=== PATIENT | male | born 1985 | race Caucasian/White ===

== ENCOUNTER 2022-06-07 06:34 | Emergency (ER) | payer SELFPAY ==
[2022-06-07 06:51] VITALS: BP 129/91; PULSE 74; RESP 16; TEMP 36.5; O2SAT 97
--- NOTE | 2022-06-07 06:57 | ED.GENADULT ---
HPI - General Adult General Time Seen by Provider: 06:58 Date Seen: 06/07/22 Chief complaint: Abdominal Pain Stated complaint: stomach pain,vomiting,diarrhea Time Seen by Provider: 06/07/22 06:36 Source: patient and RN notes reviewed Mode of arrival: ambulatory Limitations: no limitations History of Present Illness HPI narrative: Patient is a 37-year-old male coming in with abdominal pain and bloating. He and a friend both were sick after eating at a restaurant Sunday. He vomited Sunday night, had diarrhea. Yesterday he was able to eat a little bit. Still has some nausea, is feeling bloated. He thinks sending 90 at a bit of a fever but none since. He feels like he cannot defecate now, maybe almost feels constipated. He has tried Pepto-Bismol, Prilosec, took amoxicillin about 1 pill a day for 3 days with this. He does drink alcohol but states not much. There has been no blood in vomit or stool. His friend is already feeling better but he is not. Does report a history of reflux but no prior abdominal surgeries. Related Data Home Medications Medication Instructions Recorded Confirmed amoxicillin .ROUTE 06/07/22 bismuth subsalicylate 262 mg/15 mL 524 mg PO Q30M PRN 06/07/22 06/07/22 oral suspension (Anti-Diarrheal) omeprazole magnesium 20 mg 20 mg PO DAILY 06/07/22 06/07/22 tablet,delayed release (Prilosec OTC) Allergies Allergy/AdvReac Type Severity Reaction Status Date / Time No Known Drug Allergies Allergy Verified 06/07/22 06:54 Review of Systems Status of ROS: Reports: 10 or more systems reviewed and unremarkable except as noted in History and below [facility] Medical History (Updated 06/07/22 @ 08:02 by Charity Bear MD) GERD (gastroesophageal reflux disease) Exam Const: Vital Signs, click to edit/add: Vital Signs - 24 hr 06/07/22 06:51 Temperature 97.7 F Pulse Rate [Left P ulse Oximeter] 74 Respiratory Rate 16 Blood Pressure [Ri ght Upper Arm] 129/91 H Pulse Oximetry 97 Oxygen Delivery Me thod Room Air Documenting provider has reviewed patient's vital signs: yes Common normals: no apparent distress, average body habitus, oriented x3, no limitations, healthy appearing, alert and well nourished General appearance: cooperative, comfortable and well kempt HENMT: Common normals: normocephalic, head/scalp atraumatic, hearing grossly normal bilaterally and external ears normal Head and scalp: normocephalic and atraumatic External ear: external ears normal Eye: Common normals: PERRL, EOMs intact bilaterally, conjunctivae normal and no scleral icterus Conjunctiva: conjunctiva(e) normal Pupil: PERRL Neck & C-Spine: Common normals: full ROM, no lymphadenopathy, supple, no meningeal signs, no JVD and thyroid normal Thyroid: thyroid normal Resp: Common normals: normal respiratory effort, no retractions, no use of accessory muscles and clear to auscultation bilaterally Auscultation: clear to auscultation bilaterally Cardio: Common normals: no JVD, regular rate, regular rhythm, S1 normal heart sound, S2 normal heart sound, no gallops, no clicks and no murmurs Rate: regular rate Rhythm: regular rhythm Heart sounds: S1 normal and S2 normal GI: Common normals: Normal to inspection, nondistended, normoactive bowel sounds present, soft to palpation, no hepatosplenomegaly and no masses Palpation: soft and no hepatosplenomegaly Other: Bowel sounds are present, sound normal overall. He has mild diffuse tenderness throughout his abdomen but no rebound or guarding. Extremity: Common normals: normal to inspection, full ROM, normal capillary refill, no joint enlargement, no clubbing, cyanosis or edema, no calf tenderness and no pedal edema Neuro: Common normals: oriented x3 and gait normal Sensorium/orientation: alert Meningeal signs: no meningeal signs Speech: speech normal Psych: Appearance: well kempt Skin: Common normals: no rashes or lesions noted General skin exam: no rashes or lesions noted Course Course Hospital Course: We will establish an IV, give the patient 1 L normal saline, 4 mg IV Zofran and 15 mg IV Toradol. We will obtain flat and upright abdominal imaging, basic labs. This certainly could be ongoing symptoms from food-borne illness, complicating ileus. It is unlikely that he would be constipated at this point. We will start with basic imaging of the abdominal film, moved to advanced imaging if indicated. Reevaluation(s) Reevaluation #1: Reviewed with patient his normal laboratory evaluation and abdominal x-ray. He is feeling better with the medications provided. Reviewed with him that I am hopeful that it will just take a little bit more time for his intestines to return back to normal. There is nothing worrisome at this time that requires further intervention. He is happy to hear this. Time: 08:27 Vital Signs Vital signs: Initial Vital Signs Temperature 97.7 F 06/07/22 06:51 Temperature Source Temporal Artery Scan 06/07/22 06:51 Pulse Rate 74 06/07/22 06:51 Pulse Rhythm 06/07/22 06:51 Respiratory Rate 16 06/07/22 06:51 Blood Pressure 129/91 H 06/07/22 06:51 Blood Pressure Mean 103 06/07/22 06:51 Blood Pressure Position Semi-Fowlers 06/07/22 06:51 Pulse Oximetry 97 06/07/22 06:51 Oxygen Delivery Method 06/07/22 06:51 Vital Signs Temperature 97.7 F 06/07/22 06:51 Pulse Rate 74 06/07/22 06:51 Respiratory Rate 16 06/07/22 06:51 Blood Pressure 129/91 H 06/07/22 06:51 Pulse Oximetry 97 06/07/22 06:51 Oxygen Delivery Method 06/07/22 06:51 Temperature 97.7 F 06/07/22 06:51 Pulse Rate 74 06/07/22 06:51 Respiratory Rate 16 06/07/22 06:51 Blood Pressure 129/91 H 06/07/22 06:51 Pulse Oximetry 97 06/07/22 06:51 Oxygen Delivery Method 06/07/22 06:51 Medical Decision Making Lab Data Lab results reviewed: Yes I reviewed the patient's lab results Labs: Lab Results 06/07/22 06/07/22 06/07/22 Range/Units 07:25 07:25 07:25 WBC 7.04 (4.50-11.00) K/uL RBC 5.53 (4.30-5.90) m/uL Hgb 15.8 (13.5-17.5) gm/dL Hct 45.7 (37.0-53.0) % MCV 83 (80-100) fL MCH 29 (26-34) pg MCHC 35 (32-36) gm/dL RDW Coeff of Rodrigo 13.0 (11.5-15.5) % Plt Count 248 (140-440) K/uL Neut % (Auto) 61.8 (42.0-72.0) % Lymph % (Auto) 25.7 (20-44) % [place] % (Auto) 7.5 (0.0-11.0) % Eos % (Auto) 4.3 (0.0-7.0) % Baso % (Auto) 0.4 (0.0-3.0) % Neut # (Auto) 4.35 (1.7-7.0) K/uL Lymph # (Auto) 1.81 (0.90-2.90) K/uL [place] # (Auto) 0.50 (0.00-0.90) K/UL Eos # (Auto) 0.30 (0.00-0.50) K/uL Baso # (Auto) 0.03 (0.00-0.30) K/uL Abs Immat Gran (auto) 0.02 (0.00-0.30) K/uL Sodium 142 (135-149) mmol/L Potassium 4.0 (3.6-5.1) mmol/L Chloride 109 (96-114) mmol/L Carbon Dioxide 23 (20-32) mmol/L BUN 13 (5-24) mg/dL Creatinine 0.7 (0.5-1.5) mg/dL Estimated Creat Clear 124.46 Estimated GFR 121 ml/min Glucose 106 (60-115) mg/dL Lactate 0.9 (0.5-1.9) mmol/L Calcium 8.8 (8.4-10.6) mg/dL Total Bilirubin 0.5 (0.1-1.5) mg/dL AST 35 (12-35) U/L ALT 57 H (4-50) U/L Alkaline Phosphatase 113 (40-150) U/L C-Reactive Protein 1.3 H (0.5-1.0) mg/dL Total Protein 7.3 (6.0-8.3) g/dL Albumin 4.4 (3.3-5.0) g/dL Lipase 67 (23-300) U/L Imaging Data Abdominal x-ray: Attestation: I have reviewed the pertinent imaging results. My impression: No obstructive pattern on my preliminary read of this flat and upright. Await Radiology over-read. Radiologist's impression: Patient: ERICK MARADIAGA Facility:?[facility] Patient ID:?[id number] Site Patient ID:?[id number]. Site :?1985 Study:?XRay Abdomen Flat/upright-06/07/2022 7:17:39 AM Ordering Physician:?Marianela Nash Final Report: Indication: Pain. Bloating. Nausea. Vomiting. Diarrhea Technique: Upright and supine views of the abdomen were acquired Comparison: None Findings: Normal osseous structures. No pathologic calcifications. Nonspecific bowel gas pattern but no characteristic findings of ileus or obstruction. No free air. Impression: Nonspecific bowel gas pattern but no characteristic findings of ileus or obstruction. No free air. Normal osseous structures. No pathologic calcifications. Dictated by Feliz Donahue MD @ 06/07/2022 7:40:23 AM (Electronic Signature) Critical Care Time Critical Care Time Critical Care Time: No Discharge Plan Discharge Clinical Impression: Abdominal pain Patient Disposition: Home, Self-Care Condition: Stable Instructions: Abdominal Pain (ED) Additional Instructions: Drink plenty of fluids, stay with bland diet until you are feeling better. I would expect that you are going to start feeling better within the next couple days. Sometimes the bowels can be slow to return to normal function after you have had a diarrheal illness or a food-borne illness. There is no evidence of anything concerning in the workup today. If you develop increasing abdominal pain, have any fever with abdominal pain or return of vomiting, do need to return to the ER. Prescriptions: No Action omeprazole magnesium [Prilosec OTC] 20 mg tablet,delayed release (DR/EC) 20 mg PO DAILY bismuth subsalicylate [Anti-Diarrheal] 262 mg/15 mL suspension 524 mg PO Q30M PRN Rx Instructions: do not exceed 8 doses in a 24 hour period amoxicillin .ROUTE Label Comments: unknown dose Stand Alone Forms: MyHealth Info Instructions
--- NOTE | 2022-06-07 07:03 | CRLHL7_ITS ---
For Patients: As a result of the Century Cures Act, medical imaging exams and procedure reports are released immediately into your electronic medical record. You may view this report before your referring provider. If you have questions, please contact your health care provider. Indication: Pain. Bloating. Nausea. Vomiting. Diarrhea Technique: Upright and supine views of the abdomen were acquired Comparison: None Findings: Normal osseous structures. No pathologic calcifications. Nonspecific bowel gas pattern but no characteristic findings of ileus or obstruction. No free air. Impression: Nonspecific bowel gas pattern but no characteristic findings of ileus or obstruction. No free air. Normal osseous structures. No pathologic calcifications. Dictated by Feliz Donahue MD @ 06/07/2022 7:40:23 AM (Electronically Signed)
--- OUTSIDE RECORDS SUMMARY | 2022-06-07 07:13 | XMS_ITS | Encounter Summary ---
:1985 Author Organization [facility] Address [address] [place] [address] Care Team Providers Name Role Phone Unavailable Primary Care Provider Unavailable Reason for Visit Reason Onset Date Comments Testing For Upper Respiratory Virus Symptoms 03/01/2021 Encounter Details Date Type Department Care Team Description 03/01/2021 External Outreach Department of [facility] Blanca Abdul Contact With And Medicine, [place] [facility] Ahuja (Suspected) Exposure Clinic, in [address] To COVID-19 (Primary [place], [place] Dx) [address] [place] [address] [place], [place] [phone] (Work) [phone] Social History Tobacco Use Types Packs/Day Years Used Date Smoking Tobacco: Never Assessed Sex Assigned at Date Recorded Not on file documented as of this encounter Progress Notes Winsome Kulkarni RDustin. - 03/01/2021 9:18 AM CDT Encounter created for symptomatic infectious disease screening with possible COVID, Influenza, RSV, and/or Group A Strep testing. documented in this encounter Plan of Treatment Not on filedocumented as of this encounter Procedures Procedure Name Priority Date/Time Associated Diagnosis Comme nts SARS CORONAVIRUS-2 Routine 03/01/2021 9:19 AM Contact With And Results for this RNA, V CDT (Suspected) Exposure procedu re are in To COVID-19 the results section. documented in this encounter Results SARS Coronavirus-2 RNA, V Symptomatic (03/01/2021 9:19 AM CDT) [facility] Method Time Signature SARS-CoV-2 Swab, 03/01/2021 ECLR Specimen Nasopharynx 7:55 PM CDT Source SARS CoV-2 Undetected Undetected 03/01/2021 ECLR RNA, TMA 7:55 PM CDT Comment: SARS-CoV-2 RNA absent. This result does not rule out COVID-19 in the patient, as the sensitivity of the test depends o n the timing of the specimen collection and the quality of the specim en. Result should be correlated with patient's history and clinical presentat ion. ----ADDITIONAL INFORMATION---- This molecular amplification test was pe rformed using the Aptima SARS-CoV-2 assay ([employer] on the [employer] tem under emergency use authorization (EUA) by the U.S. Food and Drug Administ ration. Fact sheets for this EUA assay can be fo und at the following links: For Healthcare Providers: https://www.fd a.gov/media/068500/download For Patients: https://www.fda.gov/media/ 441343/download Specimen Anatomical Collection Method Collection Time Receive d Time (Source) Location / / Volume Laterality Varies 03/01/2021 9:19 AM 3:24 (Nasopharynx) CDT PM CDT Salvatore Abdul P.A.-C. LAB MICROBIOLOGY - GENERAL O [place] Performing Organization Address City/State/ZIP Code Phon e Number [facility]- [address] [place] [address] [phone] [facility] [place] [address] [address] documented in this encounter Visit Diagnoses Diagnosis Contact With And (Suspected) Exposure To COVID-19 - Primary documented in this encounter Additional Health Concerns Infection Onset Date Last Indicated Resolved Time COVID19 Pending 03/01/2021 03/01/2021 03/01/2021 7:56 PM CDT documented as of this encounter
--- OUTSIDE RECORDS SUMMARY | 2022-06-07 07:13 | XMS_ITS | Encounter Summary ---
:1985 Author Organization [facility] Address [address] [place] [address] Care Team Providers Name Role Phone Unavailable Primary Care Provider Unavailable Encounter Details Date Type Department Care Team Description 07/22/2020 Clinical Communication Department of [facility] P[facility], [facility] in [place], [place] [address] [place] [phone] Social History Tobacco Use Types Packs/Day Years Used Date Smoking Tobacco: Never Assessed Sex Assigned at Date Recorded Not on file documented as of this encounter Miscellaneous Notes Telephone Encounter - Aye Bueno - 07/22/2020 4:21 PM CST The patient called requesting results of their COVID-19 test. The results were communicated to the patient as negative. Aye Bueno Desk Stave Inspector PROFESSIONAL documented in this encounter Plan of Treatment Not on filedocumented as of this encounter Visit Diagnoses Not on filedocumented in this encounter Additional Health Concerns Infection Onset Date Last Indicated Resolved Time COVID19 Pending 07/21/2020 07/21/2020 07/22/2020 11:21 AM TAX PROFESSIONAL documented as of this encounter
--- OUTSIDE RECORDS SUMMARY | 2022-06-07 07:13 | XMS_ITS | Encounter Summary ---
:1985 Author Organization [facility] Address [address] [place] [address] Care Team Providers Name Role Phone Unavailable Primary Care Provider Unavailable Reason for Visit Reason Onset Date Comments Testing For Upper Respiratory Virus Symptoms 12/09/2020 Encounter Details Date Type Department Care Team Description 12/09/2020 External Outreach Department of [facility] Fredo Abdul ntact With And Medicine, Salvatore Ahuja, (Suspected) Exp osure Professional and P.A.-C. To COVID-19 ([facility] in [address] [place] [address] lvd Dx) [place], [place] [address] [address] [place], [place] [phone] (Work) [phone] Social History Tobacco Use Types Packs/Day Years Used Date Smoking Tobacco: Never Assessed Sex Assigned at Date Recorded Not on file documented as of this encounter Progress Notes Winsome Kulkarni RDustin. - 12/09/2020 8:15 AM CDT Encounter created for symptomatic infectious disease screening with possible COVID, Influenza, RSV, and/or Group A Strep testing. documented in this encounter Plan of Treatment Not on filedocumented as of this encounter Procedures Procedure Name Priority Date/Time Associated Diagnosis Comme nts SARS CORONAVIRUS-2 Routine 12/09/2020 8:16 AM Contact With And Results for this RNA, V CDT (Suspected) Exposure procedu re are in To COVID-19 the results section. documented in this encounter Results SARS Coronavirus-2 RNA, V Symptomatic (12/09/2020 8:16 AM CDT) [facility] Method Time Signature SARS-CoV-2 Swab, 12/09/2020 ECLR Specimen Nasopharynx 8:22 PM CDT Source SARS CoV-2 Undetected Undetected 12/09/2020 ECLR RNA, TMA 8:22 PM CDT Comment: SARS-CoV-2 RNA absent. This result does not rule out COVID-19 in the patient, as the sensitivity of the test depends o n the timing of the specimen collection and the quality of the specim en. Result should be correlated with patient's history and clinical presentat ion. ----ADDITIONAL INFORMATION---- This molecular amplification test was pe rformed using the Aptima SARS-CoV-2 assay ([employer] on the [employer] tem under emergency use authorization (EUA) by the U.S. Food and Drug Administ ration. Fact sheets for this EUA assay can be fo und at the following links: For Healthcare Providers: https://www.fd a.gov/media/964318/download For Patients: https://www.fda.gov/media/ 925387/download Specimen Anatomical Collection Method Collection Time Receive d Time (Source) Location / / Volume Laterality Varies 12/09/2020 8:16 AM 3:05 (Nasopharynx) CDT PM CDT Salvatore Abdul P.A.-C. LAB MICROBIOLOGY - GENERAL O [place] Performing Organization Address City/State/ZIP Code Phon e Number [facility]- [address] [place] [address] [phone] [facility] [place] [place] [address] System [address] documented in this encounter Visit Diagnoses Diagnosis Contact With And (Suspected) Exposure To COVID-19 - Primary documented in this encounter Additional Health Concerns Infection Onset Date Last Indicated Resolved Time COVID19 Pending 12/09/2020 12/09/2020 12/09/2020 8:23 PM CDT documented as of this encounter
--- OUTSIDE RECORDS SUMMARY | 2022-06-07 07:13 | XMS_ITS | Encounter Summary ---
:1985 Author Organization [facility] Address [address] [place] [address] Care Team Providers Name Role Phone Unavailable Primary Care Provider Unavailable Reason for Visit Reason Onset Date Comments Testing For Upper Respiratory Virus Symptoms 08/02/2020 Encounter Details Date Type Department Care Team Description 08/02/2020 Admin Visit Department of Family Infecti on Upper Medicine, Professional and R espiratory (Primary Dx) [facility] in [place], [place] [address] [place] [phone] Social History Tobacco Use Types Packs/Day Years Used Date Smoking Tobacco: Never Assessed Sex Assigned at Date Recorded Not on file documented as of this encounter Progress Notes Tiny Wasserman R.N. - 08/02/2020 2:15 PM CST Encounter created for symptomatic infectious disease screening with possible COVID, Influenza, and RSV testing. ANTY CLERK documented in this encounter Plan of Treatment Not on filedocumented as of this encounter Procedures Procedure Name Priority Date/Time Associated Diagnosis Comme nts SARS CORONAVIRUS-2 Routine 08/02/2020 2:16 PM Infection Upper Results for this RNA, V WARRANTY CLERK Respiratory procedure are i n the results section. documented in this encounter Results SARS Coronavirus-2 RNA, V Symptomatic (08/02/2020 2:16 PM WARRANTY CLERK) [facility] Method Time Signature SARS-CoV-2 Swab, 08/03/2020 ECLR Specimen Nasopharynx 3:14 PM WARRANTY CLERK Source SARS CoV-2 Undetected Undetected 08/03/2020 ECLR RNA, TMA 3:14 PM WARRANTY CLERK Comment: SARS-CoV-2 RNA absent. This result does not rule out COVID-19 in the patient, as the sensitivity of the test depends o n the timing of the specimen collection and the quality of the specim en. Result should be correlated with patient's history and clinical presentat ion. ----ADDITIONAL INFORMATION---- This molecular amplification test was pe rformed using the Aptima SARS-CoV-2 assay ([employer] on the [employer] tem under emergency use authorization (EUA) by the U.S. Food and Drug Administ ration. Fact sheets for this EUA assay can be fo und at the following links: For Healthcare Providers: https://www.[employer] a.gov/media/441331/download For Patients: https://www.fda.gov/media/ 631503/download Specimen Anatomical Collection Method Collection Time Receive d Time (Source) Location / / Volume Laterality Varies 08/02/2020 2:16 PM 0 (Nasopharynx) WARRANTY CLERK 10:00 PM WARRANTY CLERK Salvatore Abdul P.A.-C. LAB MICROBIOLOGY - GENERAL O RDERABLES Performing Organization Address City/State/ZIP Code Phon e Number [facility]- [address] [place] [phone] [facility] [place] [address] System [address] documented in this encounter Visit Diagnoses Diagnosis Infection Upper Respiratory - Primary documented in this encounter Additional Health Concerns Infection Onset Date Last Indicated Resolved Time COVID19 Pending 08/02/2020 08/02/2020 08/03/2020 3:15 PM WARRANTY CLERK documented as of this encounter
--- OUTSIDE RECORDS SUMMARY | 2022-06-07 07:13 | XMS_ITS | Encounter Summary ---
:1985 Author Organization [facility] Address [address] [place] [address] Care Team Providers Name Role Phone Unavailable Primary Care Provider Unavailable Encounter Details Date Type Department Care Team Description 07/27/2020 Admin Visit Department of Family Medicine, [facility] and [facility] [place] in [place], [place] [address] [phone] Social History Tobacco Use Types Packs/Day Years Used Date Smoking Tobacco: Never Assessed Sex Assigned at Date Recorded Not on file documented as of this encounter Plan of Treatment Not on filedocumented as of this encounter Visit Diagnoses Not on filedocumented in this encounter Additional Health Concerns Infection Onset Date Last Indicated Resolved Time COVID19 Pending 07/27/2020 07/27/2020 07/28/2020 11:32 AM STAINED GLASS GLAZIER documented as of this encounter
--- OUTSIDE RECORDS SUMMARY | 2022-06-07 07:13 | XMS_ITS | Encounter Summary ---
:1985 Author Organization [facility] Address [address] [place] [address] Care Team Providers Name Role Phone Unavailable Primary Care Provider Unavailable Encounter Details Date Type Department Care Team Description 12/13/2020 Clinical Communication Department of [facility] Salvatore Abdul [facility] [place] [facility] [address] [address] [place], [place] [phone] (Work) [phone] Social History Tobacco Use Types Packs/Day Years Used Date Smoking Tobacco: Never Assessed Sex Assigned at Date Recorded Not on file documented as of this encounter Miscellaneous Notes Telephone Encounter - Brigid Garcia - 12/13/2020 9:45 AM CDT The patient called requesting results of their COVID-19\ test. The results were communicated to the patient as negative. documented in this encounter Plan of Treatment Not on filedocumented as of this encounter Visit Diagnoses Not on filedocumented in this encounter
--- OUTSIDE RECORDS SUMMARY | 2022-06-07 07:13 | XMS_ITS | Encounter Summary ---
:1985 Author Organization [facility] Address [address] [place] [address] Care Team Providers Name Role Phone Unavailable Primary Care Provider Unavailable Reason for Visit Reason Onset Date Comments Testing For Upper Respiratory Virus Symptoms 08/09/2020 Encounter Details Date Type Department Care Team Description 08/09/2020 Admin Visit Department of Family Infecti on Upper Medicine, Professional and R espiratory (Primary Dx) [facility] in [place], [place] [address] [place] [phone] Social History Tobacco Use Types Packs/Day Years Used Date Smoking Tobacco: Never Assessed Sex Assigned at Date Recorded Not on file documented as of this encounter Progress Notes Alma Miller, L.P.N. - 08/09/2020 2:20 PM CST Encounter created for symptomatic infectious disease screening with possible COVID, Influenza, and RSV testing. E/MATERIALS EXCHANGE SPECIALIST documented in this encounter Plan of Treatment Not on filedocumented as of this encounter Procedures Procedure Name Priority Date/Time Associated Diagnosis Comme nts SARS CORONAVIRUS-2 Routine 08/09/2020 2:22 PM Infection Upper Results for this RNA, V WASTE/MATERIALS EXCHANGE SPECIALIST Respiratory procedure are i n the results section. documented in this encounter Results SARS Coronavirus-2 RNA, V Symptomatic (08/09/2020 2:22 PM WASTE/MATERIALS EXCHANGE SPECIALIST) [facility] Method Time Signature SARS-CoV-2 Swab, 08/10/2020 ECLR Specimen Nasopharynx 4:04 PM WASTE/MATERIALS EXCHANGE SPECIALIST Source SARS CoV-2 Undetected Undetected 08/10/2020 ECLR RNA, TMA 4:04 PM WASTE/MATERIALS EXCHANGE SPECIALIST Comment: SARS-CoV-2 RNA absent. This result does not rule out COVID-19 in the patient, as the sensitivity of the test depends o n the timing of the specimen collection and the quality of the specim en. Result should be correlated with patient's history and clinical presentat ion. ----ADDITIONAL INFORMATION---- This molecular amplification test was pe rformed using the Aptima SARS-CoV-2 assay ([employer] on the Localos tem under emergency use authorization (EUA) by the U.S. Food and Drug Administ ration. Fact sheets for this EUA assay can be fo und at the following links: For Healthcare Providers: https://www.[employer] a.gov/media/138530/download For Patients: https://www.fda.gov/media/ 403946/download Specimen Anatomical Collection Method Collection Time Receive d Time (Source) Location / / Volume Laterality Varies 08/09/2020 2:22 PM 9:45 (Nasopharynx) WASTE/MATERIALS EXCHANGE SPECIALIST PM WASTE/MATERIALS EXCHANGE SPECIALIST Salvatore Abdul P.A.-C. LAB MICROBIOLOGY - GENERAL O RDERABLES Performing Organization Address City/State/ZIP Code Phon e Number [facility]- [address] [place] [phone] [facility] [place] [address] System in [address] documented in this encounter Visit Diagnoses Diagnosis Infection Upper Respiratory - Primary documented in this encounter Additional Health Concerns Infection Onset Date Last Indicated Resolved Time COVID19 Pending 08/09/2020 08/09/2020 08/10/2020 4:04 PM WASTE/MATERIALS EXCHANGE SPECIALIST documented as of this encounter
--- OUTSIDE RECORDS SUMMARY | 2022-06-07 07:13 | XMS_ITS | Encounter Summary ---
:1985 Author Organization [facility] Address [address] [place] [address] Care Team Providers Name Role Phone Unavailable Primary Care Provider Unavailable Reason for Visit Reason Comments Results Encounter Details Date Type Department Care Team Description 02/03/2020 Clinical Communication Department of [facility] Salvatore Abdul [facility] [place] [facility], in [address] [facility] [address] [place], [place] [phone] (Work) [phone] Social History Tobacco Use Types Packs/Day Years Used Date Smoking Tobacco: Never Assessed Sex Assigned at Date Recorded Not on file documented as of this encounter Miscellaneous Notes Telephone Encounter - Heidi Boyd - 02/03/2020 11:33 AM CDT Gave Negative COVID-19 result to patient via phone. documented in this encounter Plan of Treatment Not on filedocumented as of this encounter Visit Diagnoses Not on filedocumented in this encounter
--- OUTSIDE RECORDS SUMMARY | 2022-06-07 07:13 | XMS_ITS | Encounter Summary ---
:1985 Author Organization [facility] Address [address] [place] [address] Care Team Providers Name Role Phone Unavailable Primary Care Provider Unavailable Reason for Visit Reason Comments COVID Nurse Line Encounter Details Date Type Department Care Team Description 02/02/2020 Clinical Communication Central Appointment Line, Wendy AVILA Nurse Line Office in [facility] [address] [place], [place] [id number] Social History Tobacco Use Types Packs/Day Years Used Date Smoking Tobacco: Never Assessed Sex Assigned at Date Recorded Not on file documented as of this encounter Miscellaneous Notes Telephone Encounter - Paulina Evans R.N. - 02/02/2020 9:37 AM CDT COVID-19 Nurse Line Screening ASSESSMENT *Screening done via phone vessel ordinary seaman line. COVID 19 Screening Have you had close contact with a person who has a LABORATORY CONFIRMED case of COVID-19?: No - Continue screening. Is this close contact a household contact?: No- Continue screening In the last 48 hours have you had any of the following symptoms?: New cough, New shortness of breath, New diarrhea, New headache, New myalgias (muscle aches) Do you have any urgent symptoms?: None- Patient meets criteria for testing. PLAN Endpoint recommendation: Screening positive, testing indicated, advised to be swabbed for COVID-19, sent to [facility] building located at [address] Testing hours are daily 10 am to 6 pm. When you arrive stay in your car and someone will direct you. Care Points provided: RECOMMENDATIONS TESTING CRITERIA IS MET: Stay home except to get medical care. Avoid public areas and public transportation. Separate yourself from other people and stay in a specific sick room if possible. Wear a cloth face covering, over your nose and mouth if you must be a round other people even at home). Cover your nose and mouth when coughing or sneezing. Contact employer/occupational health department to notify them that they are being tested. Seek emergent care if any of the following occur: 1) Trouble breathing, 2) Bluish lips or face, 3) Persistent pain or pressure in the chest, 4) Newly confused or unable to stay alert and awake. Notify appropriate care provider if any new or worsening symptoms. If your test is negative and new symptoms develop please contact your care provider to determine if re-testing is necessary. Education: patient/caregiver Patient/caregiver able to teach back Patient agreeable to plan of care: Yes The following references were used: [facility] novel coronavirus (COVID- 19) resources Nursing judgement documented in this encounter Plan of Treatment Not on filedocumented as of this encounter Visit Diagnoses Not on filedocumented in this encounter Additional Health Concerns Infection Onset Date Last Indicated Resolved Time COVID19 Pending 02/02/2020 02/02/2020 02/02/2020 11:38 PM CDT documented as of this encounter
--- OUTSIDE RECORDS SUMMARY | 2022-06-07 07:13 | XMS_ITS | Encounter Summary ---
:1985 Author Organization [facility] Address [address] [place] [address] Care Team Providers Name Role Phone Unavailable Primary Care Provider Unavailable Encounter Details Date Type Department Care Team Description 08/09/2020 Clinical Communication Department of [facility] Unassigned , Pcp Medicine, Professional and [facility] in [place], [place] [address] [phone] Social History Tobacco Use Types Packs/Day Years Used Date Smoking Tobacco: Never Assessed Sex Assigned at Date Recorded Not on file documented as of this encounter Plan of Treatment Not on filedocumented as of this encounter Visit Diagnoses Not on filedocumented in this encounter
--- OUTSIDE RECORDS SUMMARY | 2022-06-07 07:13 | XMS_ITS | Encounter Summary ---
:1985 Author Organization [facility] Address [address] [place] [address] Care Team Providers Name Role Phone Unavailable Primary Care Provider Unavailable Encounter Details Date Type Department Care Team Description 07/21/2020 Clinical Communication [facility] [place] [facility] P[facility] [place], [address] [address] [place], [place] [phone] (Work) [phone] Social History Tobacco Use Types Packs/Day Years Used Date Smoking Tobacco: Never Assessed Sex Assigned at Date Recorded Not on file documented as of this encounter Plan of Treatment Not on filedocumented as of this encounter Visit Diagnoses Not on filedocumented in this encounter
--- OUTSIDE RECORDS SUMMARY | 2022-06-07 07:13 | XMS_ITS | Encounter Summary ---
:1985 Author Organization [facility] Address [address] [place] [address] Care Team Providers Name Role Phone Unavailable Primary Care Provider Unavailable Encounter Details Date Type Department Care Team Description 07/27/2020 Clinical Communication Department of [facility] Unassigned , Pcp Medicine, Professional and Community Center in [place], [place] [address] [phone] Social History Tobacco Use Types Packs/Day Years Used Date Smoking Tobacco: Never Assessed Sex Assigned at Date Recorded Not on file documented as of this encounter Plan of Treatment Not on filedocumented as of this encounter Visit Diagnoses Not on filedocumented in this encounter
--- OUTSIDE RECORDS SUMMARY | 2022-06-07 07:13 | XMS_ITS | Encounter Summary ---
:1985 Author Organization [facility] Address [address] [place] [address] Care Team Providers Name Role Phone Unavailable Primary Care Provider Unavailable Encounter Details Date Type Department Care Team Description 11/30/2020 Orders Only [facility] PCP TH Sa cem Mendoza M.D. [address] [place] [phone] (Wo rk) Social History Tobacco Use Types Packs/Day Years Used Date Smoking Tobacco: Never Assessed Sex Assigned at Date Recorded Not on file documented as of this encounter Plan of Treatment Not on filedocumented as of this encounter Visit Diagnoses Not on filedocumented in this encounter
--- OUTSIDE RECORDS SUMMARY | 2022-06-07 07:13 | XMS_ITS | Encounter Summary ---
:1985 Author Organization [facility] Address [address] [place] [address] Care Team Providers Name Role Phone Unavailable Primary Care Provider Unavailable Encounter Details Date Type Department Care Team Description 12/09/2020 Clinical Communication Department [facility] Pcp Medicine, Professional and Community Center in [place], [place] [address] [place] [phone] Social History Tobacco Use Types Packs/Day Years Used Date Smoking Tobacco: Never Assessed Sex Assigned at Date Recorded Not on file documented as of this encounter Miscellaneous Notes Telephone Encounter - Tonyjohn Pool Meeks - 12/09/2020 8:12 AM CDT What is the purpose of the call?: Requesting Testing Only Request Testing In the past 14 days are any of the following symptoms new to you and not related to an existing health condition?: No symptoms noted In the past 14 days have you had close contact* with a person who has a LABORATORY CONFIRMED case ofCOVID-19?: Yes exposure noted. [place] patient, instruct to quarantine, testing indicated (End Screening) Testing Recommendation Endpoint Is testing recommended? : Recommended to test Plan: Endpoint recommendation: Testing indicated, advised to be swabbed for COVID-19 Only , sent to [facility] building located at [address] You must schedule an appointment for testing at this location. Please call [phone] during the hours of 7 am to 6 pm (M-F) or 9 am to 4:00pm (Sat and Sun) for an appointment time. Testing hours are 8 am to 12 noon every day. When you arrive at the testing site: Remain in your vehicle and check-in by calling the number listed on the signage at the testing site or provided to you at the time you schedule your testing appointment. and Please avoid using public transportation per CDC recommendation. If you do not have personal transportation please self-quarantine until a personal transportation option is available. *Reminder if sending patient for testing in [facility] or [facility], route encounter to the correct testing pool. documented in this encounter Plan of Treatment Not on filedocumented as of this encounter Visit Diagnoses Not on filedocumented in this encounter
--- OUTSIDE RECORDS SUMMARY | 2022-06-07 07:13 | XMS_ITS | Encounter Summary ---
:1985 Author Organization [facility] Address [address] [place] [address] Care Team Providers Name Role Phone Unavailable Primary Care Provider Unavailable Encounter Details Date Type Department Care Team Description 07/21/2020 Admin Visit Department of Family Medicine, [facility] [place] in [place], [place] [address] [phone] Social History Tobacco Use Types Packs/Day Years Used Date Smoking Tobacco: Never Assessed Sex Assigned at Date Recorded Not on file documented as of this encounter Plan of Treatment Not on filedocumented as of this encounter Visit Diagnoses Not on filedocumented in this encounter Additional Health Concerns Infection Onset Date Last Indicated Resolved Time COVID19 Pending 07/21/2020 07/21/2020 07/22/2020 11:21 AM PLAN COORDINATOR documented as of this encounter
--- OUTSIDE RECORDS SUMMARY | 2022-06-07 07:13 | XMS_ITS | Encounter Summary ---
:1985 Author Organization [facility] Address [address] [place] [address] Care Team Providers Name Role Phone Unavailable Primary Care Provider Unavailable Encounter Details Date Type Department Care Team Description 12/09/2020 Admin Visit Department of Family Medicine, [facility] [place] in [place], [place] [address] [phone] Social History Tobacco Use Types Packs/Day [...]
[2022-06-07] MEDS: ONDANSETRON 2 MG/ML inj 4 MG IVP (07:26)
[2022-06-07] MEDS: KETOROLAC 15 MG/ML inj IVP (07:27)
[2022-06-07] MEDS: 0.9 % SODIUM CHLORIDE 1000 ml 1,000 ML IV (07:27)
[2022-06-07 07:33] LABS: Lactate* 0.9 mmol/L (0.5-1.9)
[2022-06-07 07:35] LABS: Basophils Absolute Auto 0.03 K/uL (0.00-0.30); Basophils Percent Auto 0.4 % (0.0-3.0); Eosinophils Percent Auto 4.3 % (0.0-7.0); Hematocrit 45.7 % (37.0-53.0); Hemoglobin* 15.8 gm/dL (13.5-17.5); Immature Granulocytes Abs Auto 0.02 K/uL (0.00-0.30); Lymphocytes Absolute Auto 1.81 K/uL (0.90-2.90); Lymphocytes Percent Auto 25.7 % (20-44); Mean Corpuscular HGB Conc 35 gm/dL (32-36); Mean Corpuscular Hemoglobin 29 pg (26-34); Mean Corpuscular Volume 83 fL (80-100); Monocytes Percent Auto 7.5 % (0.0-11.0); Neutrophils Absolute Auto 4.35 K/uL (1.7-7.0); Neutrophils Percent Auto 61.8 % (42.0-72.0); Platelet Count* 248 K/uL (140-440); Red Blood Count 5.53 m/uL (4.30-5.90); White Blood Count* 7.04 K/uL (4.50-11.00)
[2022-06-07 07:37] LABS: Slide Review Reflex No
[2022-06-07 07:51] LABS: Albumin* 4.4 g/dL (3.3-5.0); Chloride* 109 mmol/L (96-114)
[2022-06-07 07:52] LABS: Sodium* 142 mmol/L (135-149)
[2022-06-07 07:54] LABS: Bilirubin Total* 0.5 mg/dL (0.1-1.5); Creatinine* 0.7 mg/dL (0.5-1.5); Est. Creatinine Clearance* 124.46; Estimated Glomerular Filt Rate 121 ml/min
[2022-06-07 07:55] LABS: Alanine Aminotransferase* 57 U/L (4-50); Alkaline Phosphatase* 113 U/L (40-150); Aspartate Amino Transferase* 35 U/L (12-35); Blood Urea Nitrogen* 13 mg/dL (5-24); Calcium* 8.8 mg/dL (8.4-10.6); Carbon Dioxide* 23 mmol/L (20-32); Glucose* 106 mg/dL (60-115); Lipase* 67 U/L (23-300); Total Protein* 7.3 g/dL (6.0-8.3)
[2022-06-07 07:58] LABS: C Reactive Protein* 1.3 mg/dL (0.5-1.0)
== END 2022-06-07 08:34 | disposition home or self-care (01) ==
PROVIDERS: Emergency Provider Family Medicine
DX: R10.9 Unspecified abdominal pain (principal); R11.10 Vomiting, unspecified; R19.7 Diarrhea, unspecified; K21.9 Gastro-esophageal reflux disease without esophagitis; Z79.899 Other long term (current) drug therapy
CPT/HCPCS: 36415; 74019; 80053; 83605; 83690; 85025; 86140; 96361; 96374; 96375; 99284; J1885; J2405; J7030

== ENCOUNTER 2025-07-14 13:54 | Emergency (ER) | payer OTHER, SELFPAY ==
[2025-07-14 14:38] VITALS: BP 138/85; PULSE 87; RESP 18; TEMP 36.9; O2SAT 97
--- NOTE | 2025-07-14 14:54 | CRLHL7_ITS ---
For Patients: As a result of the Century Cures Act, medical imaging exams and procedure reports are released immediately into your electronic medical record. You may view this report before your referring provider. If you have questions, please contact your health care provider. Indication: Fume exposure Technique: Chest 2 views Comparison: Chest x-ray 10/05/2016 Findings/Impression: Cardiovascular and mediastinum: Heart size and vasculature are normal in caliber and appearance. Mediastinum is within normal limits. Lungs and pleural spaces: Lungs are clear. No sign of infiltrate or mass. No sign of pleural effusion. No pneumothorax. Bones and soft tissues: No significant findings. Dictated by Myles Cuevas MD @ 07/14/2025 3:17:14 PM (Electronically Signed)
--- NOTE | 2025-07-14 14:54 | ED.GENADULT ---
HPI - General Adult General Time Seen by Provider: 14:54 Date Seen: 07/14/25 Chief complaint: Headache/Migraine Stated complaint: Smoke inhalation Time Seen by Provider: 07/14/25 14:53 Source: patient, RN notes reviewed and improvement rn Mode of arrival: ambulatory Limitations: no limitations History of Present Illness HPI narrative: This 40-year-old speaking patient seen with the improvement rn and is coming in with concern of fume exposure happening at work yesterday. He was driving a diesel truck, started smelling significant fumes. It irritated his throat, caused his eyes to water. He states he had some cough. He actually went home and had some nausea and vomiting. He had a little upper epigastric discomfort with that. All of these symptoms are gone today except a headache. He had a headache yesterday and still has a headache. No neurologic changes. No fevers or chills. He went to a clinic as advised by his work, they were unable to do blood work. He notes he is coughing a little still. He does not think he has been ill with anything, has had no concerns of any illness prior to this. Symptoms started after the exposure to the fumes. Patient is a smoker. His past medical history is significant for GERD and anxiety. No chronic medications. Patient was seen with nursing staff in triage to try to facilitate care due to the volume in the acuity in the ER. They are currently no ED beds. Related Data Home Medications ?Medication ?Instructions ?Recorded ?Confirmed acetaminophen [Tylenol] PO 10/23/23 10/23/23 Allergies Allergy/AdvReac Type Severity Reaction Status Date / Time No Known Drug Allergies Allergy Verified 07/14/25 14:46 Review of Systems Status of ROS: Reports: 6 or more systems reviewed and unremarkable except as noted in History and below [facility] Medical History GERD (gastroesophageal reflux disease) ?K21.9 - Gastro-esophageal reflux disease without esophagitis (ICD-10) Social History service: No Exam Const: Vital Signs, click to edit/add: Vital Signs - 24 hr 07/14/25 14:38 Temperature 98.5 F Pulse Rate [Right Pulse Oximeter] 87 Respiratory Rate 18 Blood Pressure [Ri ght Upper Arm] 138/85 Pulse Oximetry 97 Oxygen Delivery Me thod Room Air This 40-year-old male is alert, interactive, no apparent distress. He is sitting up, speech sounds normal, no hoarseness, no stridor. Sclera clear, symmetrical facial function. Neck supple, no adenopathy. No jugular venous distension. Lungs are clear, good air entry, no wheezing or crackles, no tachypnea, no accessory muscle use. CV regular rate and rhythm, no murmur, normal S1-S2. Abdomen is soft, nontender, nondistended, no organomegaly, notably patient is in the chair and this is the best that I can do with current resources. Patient did ambulate independently into the ED of his own accord. Documenting provider has reviewed patient's vital signs: yes Course Course ED Course: Patient had an exposure today, he would very likely be out of the window any acute management. We will check a carboxyhemoglobin, CBC and comprehensive metabolic panel. Will do a two view chest x-ray just to ensure lung parenchyma looks normal. His vital signs are reassuring. Will check these labs and chest x-ray, review with him and see how he is doing. He clinically looks quite well and is very stable. Reevaluation(s) Time of Reevaluation #1: 16:32 Reevaluation #1: Have updated patient, answered questions. He is stable to discharge to home at this time. We did review that his carbon monoxide is within normal limits for somebody who smokes cigarettes, is not elevated. We discussed watching for other symptoms that might develop, it is possible the headache might be indicative of early viral syndrome. Vital Signs Vital signs: Initial Vital Signs Temperature 98.5 F 07/14/25 14:38 Temperature Source Temporal Artery Scan 07/14/25 14:38 Pulse Rate 87 07/14/25 14:38 Pulse Rhythm Regular 07/14/25 14:38 Pulse Strength 3+ Normal 07/14/25 14:38 Respiratory Rate 18 07/14/25 14:38 Blood Pressure 138/85 07/14/25 14:38 Blood Pressure Mean 102 07/14/25 14:38 Blood Pressure Position Sitting 07/14/25 14:38 Pulse Oximetry 97 07/14/25 14:38 Oxygen Delivery Method Room Air 07/14/25 14:38 Vital Signs Temperature 98.5 F 07/14/25 14:38 Pulse Rate 87 07/14/25 14:38 Respiratory Rate 18 07/14/25 14:38 Blood Pressure 138/85 07/14/25 14:38 Pulse Oximetry 97 07/14/25 14:38 Oxygen Delivery Method Room Air 07/14/25 14:38 Temperature 98.5 F 07/14/25 14:38 Pulse Rate 87 07/14/25 14:38 Respiratory Rate 18 07/14/25 14:38 Blood Pressure 138/85 07/14/25 14:38 Pulse Oximetry 97 07/14/25 14:38 Oxygen Delivery Method Room Air 07/14/25 14:38 Medical Decision Making Lab Data Lab results reviewed: Yes I reviewed the patient's lab results Labs: Lab Results 07/14/25 Range/Units 15:44 WBC 8.64 (4.50-11.00) K/uL RBC 5.65 (4.30-5.90) m/uL Hgb 16.2 (13.5-17.5) gm/dL Hct 47.8 (37.0-53.0) % MCV 85 (80-100) fL MCH 29 (26-34) pg MCHC 34 (32-36) gm/dL RDW Coeff of Rodrigo 12.8 (11.5-15.5) % Plt Count 330 (140-440) K/uL Neut % (Auto) 59.1 (42.0-72.0) % Lymph % (Auto) 29.9 (20-44) % Harney % (Auto) 6.6 (0.0-11.0) % Eos % (Auto) 3.7 (0.0-7.0) % Baso % (Auto) 0.5 (0.0-3.0) % Neut # (Auto) 5.11 (1.7-7.0) K/uL Lymph # (Auto) 2.58 (0.90-2.90) K/uL Harney # (Auto) 0.60 (0.00-0.90) K/UL Eos # (Auto) 0.32 (0.00-0.50) K/uL Baso # (Auto) 0.04 (0.00-0.30) K/uL Abs Immat Gran (auto) 0.02 (0.00-0.30) K/uL Imm/Tot Granulo (auto) 0.2 % VBG pH 7.390 (7.32-7.43) VBG pCO2 43 (40-50) mmHG VBG pO2 35.7 (25-47) mmHG VBG HCO3 26 (21-28) mmol/L Carboxyhemoglobin 6.4 H (0.0-5.0) % Sodium 139 (135-149) mmol/L Potassium 4.5 (3.6-5.1) mmol/L Chloride 101 (96-114) mmol/L Carbon Dioxide 24 (20-32) mmol/L Anion Gap 14 (7-15) mEq/L BUN 11 (5-24) mg/dL Creatinine 0.8 (0.5-1.5) mg/dL Estimated GFR 114 ml/min Glucose 95 (60-115) mg/dL Calcium 9.3 (8.4-10.6) mg/dL Total Bilirubin 0.4 (0.1-1.5) mg/dL AST 34 (12-35) U/L ALT 61 H (4-50) U/L Alkaline Phosphatase 103 (40-150) U/L Total Protein 7.9 (6.0-8.3) g/dL Albumin 4.8 (3.3-5.0) g/dL Imaging Data Chest x-ray: Attestation: I have reviewed the pertinent imaging results. My impression: Did visualize patient's chest x-ray, do not see any acute pathology on my preliminary review. Radiologist's impression: Patient: ERICK MARADIAGA Facility:?[facility] [place] [facility] Patient ID:?[id number] Site Patient ID:?[id number]. Site :?1985 Study:?XRay-Chest -07/14/2025 3:13:49 PM Ordering Physician:?Marianela Nash Final Report: Indication: Fume exposure Technique: Chest 2 views Comparison: Chest x-ray 10/05/2016 Findings/Impression: Cardiovascular and mediastinum: Heart size and vasculature are normal in caliber and appearance. Mediastinum is within normal limits. Lungs and pleural spaces: Lungs are clear. No sign of infiltrate or mass. No sign of pleural effusion. No pneumothorax. Bones and soft tissues: No significant findings. Dictated by Myles Cuevas MD @ 07/14/2025 3:17:14 PM (Electronic Signature) Discharge Plan Discharge Clinical Impression: Accidental exposure to carbon monoxide Patient Disposition: Home, Self-Care Condition: Stable Additional Instructions: There is no evidence of any significant elevation of carbon monoxide. Your level is in normal limits of somebody who smokes cigarettes. Your white count and chemistries are all normal, chest x-ray is not showing any evidence of lung abnormality. You can try some Tylenol or ibuprofen per bottle directions for your headache. If your headache is not controlled with this, if your headache is worsening, you develop other concerns or new issues, can seek re-evaluation. Recommend going home to rest tonight, do drink plenty of fluids as this can help decrease headache. Activity Level: No Restrictions Prescriptions: No Action acetaminophen [Tylenol] PO Follow Up/Referrals: Provider,Not a Local [Primary Care Provider, Family Practice] Stand Alone Forms: [facility] Info Instructions Procedures ABG Interpretation ABG Results: 07/14/25 15:44 VBG pH 7.390 VBG pCO2 43 VBG pO2 35.7 VBG HCO3 26
[2025-07-14 15:52] LABS: Carboxyhemoglobin* 6.4 % (0.0-5.0); HCO3 VBG 26 mmol/L (21-28); PCO2 VBG 43 mmHG (40-50); PO2 VBG 35.7 mmHG (25-47); pH VBG 7.390 (7.32-7.43)
[2025-07-14 15:53] LABS: Hematocrit* 47.8 % (37.0-53.0); Hemoglobin* 16.2 gm/dL (13.5-17.5); Immature Granulocytes Abs Auto 0.02 K/uL (0.00-0.30); Immature Granulocytes Pct Auto 0.2 %; Lymphocytes Absolute Auto 2.58 K/uL (0.90-2.90); Mean Corpuscular HGB Conc 34 gm/dL (32-36); Mean Corpuscular Hemoglobin 29 pg (26-34); Mean Corpuscular Volume 85 fL (80-100); RDW Coefficient of Variation % 12.8 % (11.5-15.5); Red Blood Count* 5.65 m/uL (4.30-5.90); White Blood Count* 8.64 K/uL (4.50-11.00)
[2025-07-14 15:55] LABS: Slide Review Reflex No
[2025-07-14 16:00] VITALS: O2SAT 96
[2025-07-14 16:06] LABS: Albumin* 4.8 g/dL (3.3-5.0); Chloride* 101 mmol/L (96-114)
[2025-07-14 16:07] LABS: Potassium* 4.5 mmol/L (3.6-5.1); Sodium* 139 mmol/L (135-149)
[2025-07-14 16:09] LABS: Alanine Aminotransferase* 61 U/L (4-50); Anion Gap 14 mEq/L (7-15); Aspartate Amino Transferase* 34 U/L (12-35); Blood Urea Nitrogen* 11 mg/dL (5-24); Carbon Dioxide* 24 mmol/L (20-32); Creatinine* 0.8 mg/dL (0.5-1.5); Estimated Glomerular Filt Rate 114 ml/min
[2025-07-14 16:10] LABS: Alkaline Phosphatase* 103 U/L (40-150); Bilirubin Total* 0.4 mg/dL (0.1-1.5); Calcium* 9.3 mg/dL (8.4-10.6); Glucose* 95 mg/dL (60-115); Total Protein* 7.9 g/dL (6.0-8.3)
== END 2025-07-14 17:24 | disposition home or self-care (01) ==
PROVIDERS: Emergency Provider Family Medicine
DX: G43.909 Migraine, unspecified, not intractable, without status migrainosus (principal); T59.891A Toxic effect of other specified gases, fumes and vapors, accidental (unintentional), initial encounter; F17.210 Nicotine dependence, cigarettes, uncomplicated; Y99.0 Civilian activity done for income or pay
CPT/HCPCS: 36415; 71046; 80053; 82375; 82803; 85025; 94761; 99283; 99284